=== PATIENT | female | born 1970 ===

== ENCOUNTER 2018-05-26 14:03 | Outpatient (REF) | payer MEDICAID, SELFPAY ==
[2018-05-26 21:24] LABS: Hemoglobin A1C 5.5 % (4.5-6.2)
[2018-05-26 21:28] LABS: BUN 13 mg/dL (7-18); CREATININE 0.89 mg/dL (0.55-1.02); Calcium 9.6 mg/dL (8.5-10.1); Chloride 104 mmol/L (98-107); Glucose 86 mg/dL (70-100); Potassium 4.3 mmol/L (3.5-5.1); Sodium 141 mmol/L (136-145); TSH 0.47 uIU/mL (0.358-3.74)
== END 2018-05-26 14:23 ==
LOC: NCHCN 14:03
PROVIDERS: PCP Nurse Practitioner Family; Visit Provider Nurse Practitioner Family
DX: F32.9 Major depressive disorder, single episode, unspecified (principal); F17.200 Nicotine dependence, unspecified, uncomplicated; F51.04 Psychophysiologic insomnia; E66.9 Obesity, unspecified; Z13.1 Encounter for screening for diabetes mellitus
CPT/HCPCS: 80048; 83036; 84443

== ENCOUNTER 2022-01-06 15:08 | Outpatient (REF) | payer MEDICARE, SELFPAY ==
[2022-01-06 15:10] LABS: HGB 14.3 g/dL (11.2-15.7); MCH 29.2 pg (27.0-33.0); MCHC 32.5 % (32.0-36.0); MCV 90 fL (80-95); Platelet Count 424 10^3/uL (130-400); RBC 4.89 10^6/uL (3.93-5.22); RDW 12.6 % (11.7-14.6); RDW-SD 41.7 fL; WBC 14.95 10^3/uL (4.4-10.8)
[2022-01-06 15:42] LABS: TSH 0.47 uIU/mL (0.36-3.74)
[2022-01-06 16:01] LABS: HDL Cholesterol 37 mg/dL (40-60); Triglyceride 251 mg/dL (<150)
[2022-01-06 18:10] LABS: Calculated LDL 156 mg/dL (<100); Cholesterol 243 mg/dL (<200)
== END 2022-01-06 15:09 | disposition home or self-care (01) ==
LOC: NCHCN 15:08
PROVIDERS: PCP Nurse Practitioner Family; Visit Provider Nurse Practitioner Family
DX: E78.5 Hyperlipidemia, unspecified (principal); R94.6 Abnormal results of thyroid function studies
CPT/HCPCS: 80061; 85027; 84443

== ENCOUNTER 2022-06-16 13:19 | Outpatient (REF) | payer MEDICARE, SELFPAY | END 2022-06-16 13:20 | disposition home or self-care (01) | LOC: NCHCN 13:19 | PROVIDERS: PCP Nurse Practitioner Family; Visit Provider Family Medicine | DX: R39.89 Other symptoms and signs involving the genitourinary system (principal); R82.79 Other abnormal findings on microbiological examination of urine | CPT/HCPCS: 87086 ==